=== PATIENT | male | born 1960 | race Hispanic/Latino ===

== ENCOUNTER 2018-04-05 04:24 | Inpatient (IN) | payer OTHER ==
[2018-04-05] MEDS: GASTROGRAFIN SOLUTION 30ML PO ×2 (05:27→06:05)
[2018-04-05 05:39] LABS: HEMATOCRIT 35.6 % (42.0-52.0); HEMOGLOBIN 12.5 g/dl (13.5-17.5); MEAN CORPUSCULAR HEMOGLOBIN 29.5 pg (27.0-33.0); MEAN CORPUSCULAR HGB CONC 35.1 g/dl (32.0-36.5); RED BLOOD COUNT 4.24 10^6/uL (4.30-6.10); RED CELL DISTRIBUTION WIDTH 12.3 % (11.5-14.5); WHITE BLOOD COUNT 15.5 10^3/uL (4.0-10.0)
[2018-04-05 06:02] LABS: ALBUMIN 2.7 GM/DL (3.2-5.2); ALBUMIN/GLOBULIN RATIO 0.79 (1.00-1.93); ALKALINE PHOSPHATASE 122 U/L (45-117); ALT/SGPT 87 U/L (12-78); ANION GAP 18 MEQ/L (8-16); AST/SGOT 79 U/L (7-37); BILIRUBIN,DIRECT 4.1 MG/DL (0.0-0.2); BILIRUBIN,TOTAL 4.6 MG/DL (0.2-1.0); BLOOD UREA NITROGEN 56 MG/DL (7-18); CALCIUM LEVEL 8.5 MG/DL (8.5-10.1); CARBON DIOXIDE LEVEL 19 MEQ/L (21-32); CHLORIDE LEVEL 97 MEQ/L (98-107); CK-MB VALUE MASS < 1.0 NG/ML (<3.6); CPK CREATINE PHOSPHOKINASE 92 U/L (39-308); CREATININE FOR GFR 5.29 MG/DL (0.70-1.30); GLUCOSE, FASTING 399 MG/DL (70-100); LIPASE 106 U/L (73-393); MB/CK RELATIVE INDEX 1.08 (< OR =4); POTASSIUM SERUM 4.2 MEQ/L (3.5-5.1); SODIUM LEVEL 134 MEQ/L (136-145); TOTAL PROTEIN 6.1 GM/DL (6.4-8.2); TROPONIN I < 0.02 NG/ML (< 0.10)
[2018-04-05 06:12] LABS: AMORPHOUS SEDIMENT LARGE (NEGATIVE); APPEARANCE, URINE CLOUDY (CLEAR); BACTERIA, URINE AUTO NEGATIVE (NEGATIVE); BILIRUBIN, URINE AUTO 1+ (NEGATIVE); BLOOD, URINE BLOOD 1+ (NEGATIVE); COLOR, URINE AMBER (YELLOW); GLUCOSE, URINE (UA) AUTO 3+ mg/dL (NEGATIVE); KETONE, URINE AUTO NEGATIVE (NEGATIVE); LEUKOCYTE ESTERASE, URINE AUTO TRACE (NEGATIVE); NITRITE, URINE AUTO NEGATIVE (NEGATIVE); PROTEIN, URINE AUTO 2+ mg/dL (NEGATIVE); RBC, URINE AUTO 1 /HPF (0-3); RENAL EPITHELIAL CELLS 1 /HPF; SPECIFIC GRAVITY URINE AUTO 1.018 (1.002-1.035); SQUAMOUS EPITHELIAL CELL UR AU 3 /HPF (0-6); TRANSITIONAL EPITHELIAL AUTO 4 /HPF; WBC, URINE AUTO 13 /HPF (0-3)
[2018-04-05 06:35] LABS: PLATELET COUNT, AUTOMATED 71 10^3/uL (150-450); POSITIVE MORPH POS FLAG
[2018-04-05 06:38] LABS: ADD MANUAL DIFFER YES; DIFF SLIDE NUMBER 91
[2018-04-05 06:42] LABS: ANISOCYTOSIS 1+; ATYPICAL LYMPH 2 % (0-5); BANDS 5 % (< 11); LYMPHOCYTES 8 % (16-52); MONOCYTES 3 % (0-8); NEUTROPHILS 82 % (35-75); PLATELET ESTIMATE DECREASED (NORMAL); POLYCHROMASIA 1+
[2018-04-05 06:43] LABS: TOXIC VACUOLATION 1+
[2018-04-05] MEDS: HumuLIN R (REGULAR) INSULIN (NovoLIN R) **100U/ML** PER UNIT IV (07:04)
[2018-04-05 08:29] LABS: BEDSIDE GLUCOSE 341 MG/DL (70-105)
[2018-04-05] MEDS: HumuLIN R (REGULAR) INSULIN (NovoLIN R) **100U/ML** PER UNIT SC (09:32)
[2018-04-05] MEDS: PIPERACILLIN/TAZOBACTAM SOD 2.25 GM in D5W MINI-BAG PLUS 50 ML IV ×2 (09:32→17:18)
[2018-04-05 10:09] LABS: ABG BASE EXCESS -7.1 (-2.0-2.0); ABG HCO3 16.6 MEQ/L (22.0-26.0); ABG O2 SATURATION 91.6 % (95.0-99.0); ABG PARTIAL PRESSURE CO2 28.7 mmHg (35.0-45.0); ABG PARTIAL PRESSURE O2 61.9 mmHg (75.0-100.0); ABG STANDARD HCO3 18.6 MEQ/L (22.0-26.0); ABG TOTAL CO2 17.5 MEQ/L (22.0-29.0); ABG pH (ARTERIAL) 7.381 UNITS (7.350-7.450)
[2018-04-05 10:50] LABS: LACTIC ACID SEPSIS PROTOCOL 3.2 MMOL/L (0.4-2.0)
[2018-04-05 10:55] LABS: BEDSIDE GLUCOSE 370 MG/DL (70-105)
[2018-04-05] MEDS ORDERED: INSULIN HUMAN REGULAR 100 UNITS in NS 99 ML IV (11:00)
[2018-04-05] MEDS ORDERED: PERCOCET 5MG/325MG TAB PO (11:30)
[2018-04-05 11:44] LABS: BEDSIDE GLUCOSE 368 MG/DL (70-105)
[2018-04-05] MEDS: NS 1,000 ML IV ×3 (11:44→23:59)
[2018-04-05 11:50] LABS: ESTIMATED AVERAGE GLUCOSE 232 MG/DL (60-110); HEMOGLOBIN A1c 9.7 %
[2018-04-05] MEDS ORDERED: PANTOPRAZOLE 40MG INJ (PROTONIX) (C9113) IV (12:00)
[2018-04-05] MEDS ORDERED: PIPERACILLIN/TAZOBACTAM SOD 2.25 GM in D5W MINI-BAG PLUS 50 ML IV (12:00)
[2018-04-05 12:05] LABS: ACETONE/KETONE 6.67 MG/DL (<2.81); ANION GAP 16 MEQ/L (8-16); BLOOD UREA NITROGEN 66 MG/DL (7-18); CALCIUM LEVEL 8.6 MG/DL (8.5-10.1); CARBON DIOXIDE LEVEL 22 MEQ/L (21-32); CHLORIDE LEVEL 96 MEQ/L (98-107); CREATININE FOR GFR 5.94 MG/DL (0.70-1.30); GLOMERULAR FILTRATION RATE 10.5 (>56); GLUCOSE, FASTING 393 MG/DL (70-100); POTASSIUM SERUM 4.4 MEQ/L (3.5-5.1); SODIUM LEVEL 134 MEQ/L (136-145); TROPONIN I < 0.02 NG/ML (< 0.10)
[2018-04-05 12:27] LABS: BEDSIDE GLUCOSE 378 MG/DL (70-105)
[2018-04-05] MEDS: INSULIN HUMAN REGULAR 100 UNITS in NS 99 ML IV (12:27)
[2018-04-05 12:39] LABS: FIBRINOGEN 860 MG/DL (221-452)
[2018-04-05 12:39] LABS: INR 1.33; PROTHROMBIN TIME 16.7 SECONDS (12.1-14.4)
[2018-04-05] MEDS: PANTOPRAZOLE 40MG INJ (PROTONIX) (C9113) IV (12:51)
[2018-04-05] MEDS: METOPROLOL TART 50 MG TAB PO ×2 (12:52→21:00)
[2018-04-05] MEDS: MORPHINE 4 MG/ML 1ML VIAL/SYRINGE (J2270) IV ×2 (12:59→21:13)
[2018-04-05 13:05] LABS: D-DIMER QUANT > 4000.0 ng/ml (<500)
[2018-04-05 13:10] LABS: BEDSIDE GLUCOSE 369 MG/DL (70-105)
[2018-04-05 14:18] LABS: BEDSIDE GLUCOSE 354 MG/DL (70-105)
[2018-04-05 15:27] LABS: BEDSIDE GLUCOSE 321 MG/DL (70-105)
[2018-04-05] MEDS: INSULIN IV RATE CHANGE DOCUMENTATION ML/HR XX (15:30)
[2018-04-05 15:35] LABS: AMPHETAMINES LEVEL URINE NEGATIVE (NEGATIVE); BARBITURATES URINE NEGATIVE (NEGATIVE); BENZODIAZEPINES URINE NEGATIVE (NEGATIVE); CANNABINOIDS URINE NEGATIVE (NEGATIVE); COCAINE METABOLITE URINE NEGATIVE (NEGATIVE); METHADONE URINE NEGATIVE (NEGATIVE); OPIATES URINE POSITIVE (NEGATIVE); PHENCYCLIDINE URINE NEGATIVE (NEGATIVE)
[2018-04-05 15:41] LABS: SODIUM,RANDOM URINE 54 MEQ/L
[2018-04-05 15:50] LABS: ANION GAP 12 MEQ/L (8-16); BLOOD UREA NITROGEN 67 MG/DL (7-18); CALCIUM LEVEL 8.7 MG/DL (8.5-10.1); CARBON DIOXIDE LEVEL 20 MEQ/L (21-32); CHLORIDE LEVEL 100 MEQ/L (98-107); GLOMERULAR FILTRATION RATE 10.2 (>56); GLUCOSE, FASTING 330 MG/DL (70-100); POTASSIUM SERUM 4.1 MEQ/L (3.5-5.1); SODIUM LEVEL 132 MEQ/L (136-145)
[2018-04-05] MEDS ORDERED: GLUCAGON FOR INJ 1 MG VIAL (J1610) SC (16:15)
[2018-04-05] MEDS ORDERED: GLUCOSE 4 GM CHEW TABLET PO (16:15)
[2018-04-05] MEDS ORDERED: DEXTROSE 50% 50 ML SYRINGE IV (16:15)
[2018-04-05] MEDS: LEVEMIR (INSULIN DETEMIR) 1 UNITS/0.01ML SC (16:32)
[2018-04-05 17:11] LABS: BEDSIDE GLUCOSE 297 MG/DL (70-105)
[2018-04-05] MEDS ORDERED: LORazepam 2 MG/ML VIAL (J2060) IV (17:11)
[2018-04-05] MEDS: HumaLOG INSULIN (NovoLOG) PER UNIT SC ×2 (17:18→21:04)
[2018-04-05 19:48] LABS: BEDSIDE GLUCOSE 275 MG/DL (70-105)
[2018-04-06] MEDS: PANTOPRAZOLE 40MG INJ (PROTONIX) (C9113) IV ×2 (01:13→12:30)
[2018-04-06] MEDS: PIPERACILLIN/TAZOBACTAM SOD 2.25 GM in D5W MINI-BAG PLUS 50 ML IV ×3 (01:13→17:15)
[2018-04-06] MEDS: MORPHINE 4 MG/ML 1ML VIAL/SYRINGE (J2270) IV (04:21)
[2018-04-06 06:06] LABS: ALBUMIN 2.2 GM/DL (3.2-5.2); ALBUMIN/GLOBULIN RATIO 0.56 (1.00-1.93); ALKALINE PHOSPHATASE 90 U/L (45-117); ALT/SGPT 60 U/L (12-78); ANION GAP 15 MEQ/L (8-16); AST/SGOT 53 U/L (7-37); BILIRUBIN,TOTAL 5.4 MG/DL (0.2-1.0); BLOOD UREA NITROGEN 77 MG/DL (7-18); CALCIUM LEVEL 8.6 MG/DL (8.5-10.1); CARBON DIOXIDE LEVEL 20 MEQ/L (21-32); CHLORIDE LEVEL 101 MEQ/L (98-107); CREATININE FOR GFR 7.45 MG/DL (0.70-1.30); GLOMERULAR FILTRATION RATE 8.1 (>56); GLUCOSE, FASTING 213 MG/DL (70-100); POTASSIUM SERUM 4.9 MEQ/L (3.5-5.1); SODIUM LEVEL 136 MEQ/L (136-145); TOTAL PROTEIN 6.1 GM/DL (6.4-8.2)
[2018-04-06 06:52] LABS: HEMATOCRIT 33.1 % (42.0-52.0); HEMOGLOBIN 11.7 g/dl (13.5-17.5); MEAN CORPUSCULAR HEMOGLOBIN 29.6 pg (27.0-33.0); MEAN CORPUSCULAR HGB CONC 35.3 g/dl (32.0-36.5); MEAN CORPUSCULAR VOLUME 83.8 fl (80.0-96.0); RED BLOOD COUNT 3.95 10^6/uL (4.30-6.10); RED CELL DISTRIBUTION WIDTH 13.1 % (11.5-14.5)
[2018-04-06 07:22] LABS: PLATELET COUNT, AUTOMATED 48 10^3/uL (150-450)
[2018-04-06 07:23] LABS: IMMATURE PLATELET FRACTION % 22.2 % (0.0-10.9)
[2018-04-06 07:29] LABS: LACTIC ACID SEPSIS PROTOCOL 4.1 MMOL/L (0.4-2.0)
[2018-04-06] MEDS: METOPROLOL TART 50 MG TAB PO ×2 (09:02→20:27)
[2018-04-06] MEDS: HumaLOG INSULIN (NovoLOG) PER UNIT SC ×4 (09:03→20:27)
[2018-04-06] MEDS: NS 1,000 ML IV ×2 (11:04→20:25)
[2018-04-06 12:19] LABS: BEDSIDE GLUCOSE 204 MG/DL (70-105)
[2018-04-06] MEDS: FUROSEMIDE 100 MG/10 ML VIAL (J1940) IV (12:30)
[2018-04-06 14:30] LABS: ANION GAP 18 MEQ/L (8-16); BLOOD UREA NITROGEN 87 MG/DL (7-18); CALCIUM LEVEL 8.4 MG/DL (8.5-10.1); CARBON DIOXIDE LEVEL 17 MEQ/L (21-32); CHLORIDE LEVEL 101 MEQ/L (98-107); CREATININE FOR GFR 7.92 MG/DL (0.70-1.30); GLOMERULAR FILTRATION RATE 7.6 (>56); GLUCOSE, FASTING 225 MG/DL (70-100); POTASSIUM SERUM 4.8 MEQ/L (3.5-5.1); SODIUM LEVEL 136 MEQ/L (136-145)
[2018-04-06 17:07] LABS: BEDSIDE GLUCOSE 217 MG/DL (70-105)
[2018-04-06 20:27] LABS: BEDSIDE GLUCOSE 197 MG/DL (70-105)
[2018-04-06] MEDS: PERCOCET 5MG/325MG TAB PO (21:19)
[2018-04-07] MEDS: NS 1,000 ML IV (00:15)
[2018-04-07] MEDS: PANTOPRAZOLE 40MG INJ (PROTONIX) (C9113) IV ×2 (01:00→16:51)
[2018-04-07] MEDS: PIPERACILLIN/TAZOBACTAM SOD 2.25 GM in D5W MINI-BAG PLUS 50 ML IV ×3 (01:08→16:52)
[2018-04-07] MEDS: ALBUTEROL 90 MCG/ACT 8GM HFA INHALER INH ×2 (01:42→23:51)
[2018-04-07 04:54] LABS: ALBUMIN 1.9 GM/DL (3.2-5.2); ALBUMIN/GLOBULIN RATIO 0.48 (1.00-1.93); ALKALINE PHOSPHATASE 82 U/L (45-117); ALT/SGPT 49 U/L (12-78); ANION GAP 18 MEQ/L (8-16); AST/SGOT 57 U/L (7-37); BILIRUBIN,TOTAL 8.7 MG/DL (0.2-1.0); BLOOD UREA NITROGEN 107 MG/DL (7-18); CALCIUM LEVEL 8.3 MG/DL (8.5-10.1); CARBON DIOXIDE LEVEL 17 MEQ/L (21-32); CHLORIDE LEVEL 101 MEQ/L (98-107); GLOMERULAR FILTRATION RATE 6.6 (>56); GLUCOSE, FASTING 251 MG/DL (70-100); SODIUM LEVEL 136 MEQ/L (136-145); TOTAL PROTEIN 5.9 GM/DL (6.4-8.2)
[2018-04-07 04:56] LABS: CREATININE FOR GFR 8.88 MG/DL (0.70-1.30); POTASSIUM SERUM 5.5 MEQ/L (3.5-5.1)
[2018-04-07 06:48] LABS: HEMATOCRIT 31.7 % (42.0-52.0); MEAN CORPUSCULAR HEMOGLOBIN 29.4 pg (27.0-33.0); MEAN CORPUSCULAR HGB CONC 34.7 g/dl (32.0-36.5); MEAN CORPUSCULAR VOLUME 84.8 fl (80.0-96.0); RED BLOOD COUNT 3.74 10^6/uL (4.30-6.10); RED CELL DISTRIBUTION WIDTH 13.9 % (11.5-14.5); WHITE BLOOD COUNT 23.1 10^3/uL (4.0-10.0)
[2018-04-07 07:01] LABS: PLATELET COUNT, AUTOMATED 46 10^3/uL (150-450)
[2018-04-07 07:28] LABS: LACTIC ACID SEPSIS PROTOCOL 3.1 MMOL/L (0.4-2.0)
[2018-04-07] MEDS: HumaLOG INSULIN (NovoLOG) PER UNIT SC ×4 (07:57→20:53)
[2018-04-07] MEDS: METOPROLOL TART 50 MG TAB PO ×2 (08:26→20:49)
[2018-04-07] MEDS ORDERED: HEPARIN 1,000 UNITS/ML 10ML VIAL (FOR RADIOLOGY& DIALYSIS ONLY) As Ordered (10:44)
[2018-04-07 10:54] LABS: HIV 1&2 SCREEN CENTAUR NEGATIVE (NEGATIVE)
[2018-04-07 11:59] LABS: HEPATITIS B SURFACE ANTIGEN NEGATIVE (NEGATIVE)
[2018-04-07 12:23] LABS: HEPATITIS C VIRUS ABY INDEX 0.1 INDEX (<0.8)
[2018-04-07 12:24] LABS: HEPATITIS B CORE ANTIBODY IGM NEGATIVE (NEGATIVE)
[2018-04-07 12:26] LABS: HEPATITIS A ANTIBODY IGM NEGATIVE (NEGATIVE)
[2018-04-07] MEDS: HEPARIN 1,000 UNITS/ML 10ML VIAL (FOR RADIOLOGY& DIALYSIS ONLY) IV (15:45)
[2018-04-07 17:07] LABS: BEDSIDE GLUCOSE 170 MG/DL (70-105)
[2018-04-07 20:15] LABS: BEDSIDE GLUCOSE 214 MG/DL (70-105)
[2018-04-07 20:28] LABS: ABG BASE EXCESS -7.4 (-2.0-2.0); ABG HCO3 16.3 MEQ/L (22.0-26.0); ABG O2 SATURATION 93.2 % (95.0-99.0); ABG PARTIAL PRESSURE CO2 27.8 mmHg (35.0-45.0); ABG PARTIAL PRESSURE O2 74.2 mmHg (75.0-100.0); ABG STANDARD HCO3 18.4 MEQ/L (22.0-26.0); ABG TOTAL CO2 17.2 MEQ/L (22.0-29.0); ABG pH (ARTERIAL) 7.387 UNITS (7.350-7.450)
[2018-04-07 20:33] LABS: HEMATOCRIT 29.3 % (42.0-52.0); HEMOGLOBIN 10.6 g/dl (13.5-17.5); MEAN CORPUSCULAR HEMOGLOBIN 29.4 pg (27.0-33.0); MEAN CORPUSCULAR HGB CONC 36.2 g/dl (32.0-36.5); MEAN CORPUSCULAR VOLUME 81.2 fl (80.0-96.0); RED BLOOD COUNT 3.61 10^6/uL (4.30-6.10); RED CELL DISTRIBUTION WIDTH 13.4 % (11.5-14.5); WHITE BLOOD COUNT 25.8 10^3/uL (4.0-10.0)
[2018-04-07 20:41] LABS: PLATELET COUNT, AUTOMATED 41 10^3/uL (150-450)
[2018-04-07 20:48] LABS: AMMONIA < 10 uMOL/L (<32)
[2018-04-07 20:52] LABS: ALBUMIN 1.9 GM/DL (3.2-5.2); ALBUMIN/GLOBULIN RATIO 0.58 (1.00-1.93); ALKALINE PHOSPHATASE 103 U/L (45-117); ALT/SGPT 48 U/L (12-78); AMYLASE 19 U/L (25-115); ANION GAP 19 MEQ/L (8-16); AST/SGOT 70 U/L (7-37); BILIRUBIN,TOTAL 10.6 MG/DL (0.2-1.0); BLOOD UREA NITROGEN 70 MG/DL (7-18); CALCIUM LEVEL 7.8 MG/DL (8.5-10.1); CARBON DIOXIDE LEVEL 20 MEQ/L (21-32); CHLORIDE LEVEL 99 MEQ/L (98-107); GLOMERULAR FILTRATION RATE 11.5 (>56); GLUCOSE, FASTING 208 MG/DL (70-100); LIPASE 68 U/L (73-393); POTASSIUM SERUM 4.7 MEQ/L (3.5-5.1); SODIUM LEVEL 138 MEQ/L (136-145); TOTAL PROTEIN 5.2 GM/DL (6.4-8.2)
[2018-04-08] MEDS: NITROGLYCERIN 0.4 MG SUBL TABLET SL (00:42)
[2018-04-08] MEDS: PANTOPRAZOLE 40MG INJ (PROTONIX) (C9113) IV ×2 (00:43→17:29)
[2018-04-08] MEDS: PIPERACILLIN/TAZOBACTAM SOD 2.25 GM in D5W MINI-BAG PLUS 50 ML IV ×3 (00:44→17:29)
[2018-04-08 01:14] LABS: CK-MB VALUE MASS < 1.0 NG/ML (<3.6); CPK CREATINE PHOSPHOKINASE 40 U/L (39-308); TROPONIN I 0.03 NG/ML (< 0.10)
[2018-04-08 02:25] LABS: ABG BASE EXCESS -10.4 (-2.0-2.0); ABG HCO3 14.5 MEQ/L (22.0-26.0); ABG O2 SATURATION 95.7 % (95.0-99.0); ABG PARTIAL PRESSURE CO2 29.2 mmHg (35.0-45.0); ABG PARTIAL PRESSURE O2 93.1 mmHg (75.0-100.0); ABG STANDARD HCO3 16.1 MEQ/L (22.0-26.0); ABG TOTAL CO2 15.4 MEQ/L (22.0-29.0); ABG pH (ARTERIAL) 7.315 UNITS (7.350-7.450)
[2018-04-08] MEDS ORDERED: ALBUTEROL SULFATE 2.5 MG/0.5 ML INH NEB SOLN NEB (02:30)
[2018-04-08] MEDS: IPRATROPIUM 0.5MG/ALBUTEROL 2.5MG INH SOL UD 3ML (DUONEB)(J7620) NEB (02:38)
[2018-04-08 05:28] LABS: ALBUMIN 1.8 GM/DL (3.2-5.2); ALBUMIN/GLOBULIN RATIO 0.46 (1.00-1.93); ALKALINE PHOSPHATASE 118 U/L (45-117); ALT/SGPT 42 U/L (12-78); ANION GAP 19 MEQ/L (8-16); AST/SGOT 53 U/L (7-37); BLOOD UREA NITROGEN 85 MG/DL (7-18); CALCIUM LEVEL 7.9 MG/DL (8.5-10.1); CARBON DIOXIDE LEVEL 19 MEQ/L (21-32); CHLORIDE LEVEL 98 MEQ/L (98-107); CREATININE FOR GFR 6.52 MG/DL (0.70-1.30); GLOMERULAR FILTRATION RATE 9.5 (>56); GLUCOSE, FASTING 295 MG/DL (70-100); POTASSIUM SERUM 4.6 MEQ/L (3.5-5.1); SODIUM LEVEL 136 MEQ/L (136-145); TOTAL PROTEIN 5.7 GM/DL (6.4-8.2)
[2018-04-08] MEDS: HumaLOG INSULIN (NovoLOG) PER UNIT SC ×4 (07:45→20:49)
[2018-04-08] MEDS ORDERED: ISOVUE-370 76% 100ML VIAL (Q9967) As Ordered (08:12)
[2018-04-08] MEDS: METOPROLOL TART 50 MG TAB PO ×2 (09:00→20:49)
[2018-04-08] MEDS: HEPARIN 1,000 UNITS/ML 10ML VIAL (FOR RADIOLOGY& DIALYSIS ONLY) XX (12:15)
[2018-04-08 12:22] LABS: LDH LACTATE DEHYDROGENASE 300 U/L (87-241)
[2018-04-08 12:56] LABS: HEMATOCRIT 30.3 % (42.0-52.0); HEMOGLOBIN 11.1 g/dl (13.5-17.5); MEAN CORPUSCULAR HEMOGLOBIN 29.4 pg (27.0-33.0); MEAN CORPUSCULAR HGB CONC 36.6 g/dl (32.0-36.5); MEAN CORPUSCULAR VOLUME 80.2 fl (80.0-96.0); RED BLOOD COUNT 3.78 10^6/uL (4.30-6.10); RED CELL DISTRIBUTION WIDTH 13.8 % (11.5-14.5); WHITE BLOOD COUNT 24.3 10^3/uL (4.0-10.0)
[2018-04-08 12:58] LABS: PLATELET COUNT, AUTOMATED 35 10^3/uL (150-450)
[2018-04-08 12:59] LABS: IMMATURE PLATELET FRACTION % 17.9 % (0.0-10.9)
[2018-04-08 17:05] LABS: BEDSIDE GLUCOSE 219 MG/DL (70-105)
[2018-04-08 18:07] LABS: GAMMA GLUTAMYLTRANSPEPTIDASE 60 U/L (15-85)
[2018-04-08] MEDS: VANCOMYCIN HCL 1,000 MG, VIAL MATE ADAPTER 1 EACH in D5W 250 ML IV (18:31)
[2018-04-08 20:25] LABS: BILIRUBIN,DIRECT 9.3 MG/DL (0.0-0.2)
[2018-04-08 20:50] LABS: BEDSIDE GLUCOSE 267 MG/DL (70-105)
[2018-04-08] MEDS: AZITHROMYCIN INJ 500 MG, VIAL MATE ADAPTER 1 EACH in D5W 250 ML IV (23:15)
[2018-04-09] MEDS: PANTOPRAZOLE 40MG INJ (PROTONIX) (C9113) IV ×2 (00:16→17:02)
[2018-04-09] MEDS: AZITHROMYCIN INJ 500 MG, VIAL MATE ADAPTER 1 EACH in D5W 250 ML IV (00:16)
[2018-04-09 00:34] LABS: AMMONIA < 10 uMOL/L (<32)
[2018-04-09 00:50] LABS: ANION GAP 16 MEQ/L (8-16); BLOOD UREA NITROGEN 68 MG/DL (7-18); CALCIUM LEVEL 7.6 MG/DL (8.5-10.1); CARBON DIOXIDE LEVEL 24 MEQ/L (21-32); CHLORIDE LEVEL 96 MEQ/L (98-107); GLOMERULAR FILTRATION RATE 12.3 (>56); GLUCOSE, FASTING 263 MG/DL (70-100); POTASSIUM SERUM 4.3 MEQ/L (3.5-5.1); SODIUM LEVEL 136 MEQ/L (136-145)
[2018-04-09] MEDS: PERCOCET 5MG/325MG TAB PO ×2 (00:51→20:36)
[2018-04-09] MEDS: PIPERACILLIN/TAZOBACTAM SOD 2.25 GM in D5W MINI-BAG PLUS 50 ML IV ×3 (00:51→17:42)
[2018-04-09 01:04] LABS: HEMATOCRIT 28.3 % (42.0-52.0); HEMOGLOBIN 10.4 g/dl (13.5-17.5); MEAN CORPUSCULAR HEMOGLOBIN 29.5 pg (27.0-33.0); MEAN CORPUSCULAR HGB CONC 36.7 g/dl (32.0-36.5); MEAN CORPUSCULAR VOLUME 80.2 fl (80.0-96.0); RED BLOOD COUNT 3.53 10^6/uL (4.30-6.10); RED CELL DISTRIBUTION WIDTH 13.8 % (11.5-14.5); WHITE BLOOD COUNT 27.5 10^3/uL (4.0-10.0)
[2018-04-09 01:08] LABS: PLATELET COUNT, AUTOMATED 33 10^3/uL (150-450)
[2018-04-09 05:11] LABS: HEMATOCRIT 26.6 % (42.0-52.0); HEMOGLOBIN 9.8 g/dl (13.5-17.5); MEAN CORPUSCULAR HEMOGLOBIN 28.8 pg (27.0-33.0); MEAN CORPUSCULAR HGB CONC 36.8 g/dl (32.0-36.5); MEAN CORPUSCULAR VOLUME 78.2 fl (80.0-96.0); RED CELL DISTRIBUTION WIDTH 13.5 % (11.5-14.5)
[2018-04-09 05:17] LABS: PLATELET COUNT, AUTOMATED 31 10^3/uL (150-450)
[2018-04-09 05:32] LABS: ALBUMIN 1.5 GM/DL (3.2-5.2); ALBUMIN/GLOBULIN RATIO 0.39 (1.00-1.93); ALKALINE PHOSPHATASE 162 U/L (45-117); ALT/SGPT 39 U/L (12-78); ANION GAP 15 MEQ/L (8-16); AST/SGOT 54 U/L (7-37); BILIRUBIN,TOTAL 12.7 MG/DL (0.2-1.0); BLOOD UREA NITROGEN 76 MG/DL (7-18); CALCIUM LEVEL 7.8 MG/DL (8.5-10.1); CARBON DIOXIDE LEVEL 23 MEQ/L (21-32); CHLORIDE LEVEL 98 MEQ/L (98-107); CREATININE FOR GFR 5.77 MG/DL (0.70-1.30); GLOMERULAR FILTRATION RATE 10.9 (>56); GLUCOSE, FASTING 296 MG/DL (70-100); POTASSIUM SERUM 4.2 MEQ/L (3.5-5.1); SODIUM LEVEL 136 MEQ/L (136-145); TOTAL PROTEIN 5.3 GM/DL (6.4-8.2)
[2018-04-09 06:02] LABS: ERYTHROCYTE SEDIMENTATION RATE 68 mm/hr (0-20)
[2018-04-09] MEDS: HumaLOG INSULIN (NovoLOG) PER UNIT SC ×4 (07:30→23:36)
[2018-04-09] MEDS: ALPRAZolam 0.5 MG TAB PO (10:05)
[2018-04-09] MEDS: METOPROLOL TART 50 MG TAB PO ×2 (11:12→20:36)
[2018-04-09] MEDS ORDERED: DARBEPOETIN 100 MCG/0.5 ML *DIALYSIS* SYRINGE (J0882) IV (13:00)
[2018-04-09 14:06] LABS: PROTHROMBIN TIME 16.4 SECONDS (12.1-14.4)
[2018-04-09] MEDS: HEPARIN 1,000 UNITS/ML 10ML VIAL (FOR RADIOLOGY& DIALYSIS ONLY) XX (14:52)
[2018-04-09] MEDS: NS 1,000 ML IV (17:39)
[2018-04-09 18:18] LABS: BEDSIDE GLUCOSE 195 MG/DL (70-105)
[2018-04-09 18:44] LABS: IMMEDIATE SPIN CROSSMATCH 1
[2018-04-09 20:36] LABS: BEDSIDE GLUCOSE 216 MG/DL (70-105)
[2018-04-09] MEDS: MORPHINE 4 MG/ML 1ML VIAL/SYRINGE (J2270) IV (23:36)
[2018-04-09 23:38] LABS: BEDSIDE GLUCOSE 235 MG/DL (70-105)
[2018-04-10] MEDS: PANTOPRAZOLE 40MG INJ (PROTONIX) (C9113) IV ×2 (01:00→13:05)
[2018-04-10] MEDS: PIPERACILLIN/TAZOBACTAM SOD 2.25 GM in D5W MINI-BAG PLUS 50 ML IV ×3 (01:00→17:00)
[2018-04-10] MEDS: PERCOCET 5MG/325MG TAB PO (02:03)
[2018-04-10 04:50] LABS: HEMATOCRIT 26.2 % (42.0-52.0); HEMOGLOBIN 9.4 g/dl (13.5-17.5); MEAN CORPUSCULAR HGB CONC 35.9 g/dl (32.0-36.5); MEAN CORPUSCULAR VOLUME 80.9 fl (80.0-96.0); RED BLOOD COUNT 3.24 10^6/uL (4.30-6.10); RED CELL DISTRIBUTION WIDTH 13.5 % (11.5-14.5); SLIDE REVIEW Report; SOURCE PERIPHERAL SMEAR; WHITE BLOOD COUNT 25.6 10^3/uL (4.0-10.0)
[2018-04-10 04:52] LABS: IMMATURE PLATELET FRACTION % 12.3 % (0.0-10.9); PLATELET COUNT, AUTOMATED 85 10^3/uL (150-450)
[2018-04-10 05:00] LABS: INR 1.34; PARTIAL THROMBOPLASTIN TIME 27.9 SECONDS (25.4-37.6); PROTHROMBIN TIME 16.8 SECONDS (12.1-14.4)
[2018-04-10 05:04] LABS: URIC ACID 6.7 MG/DL (3.5-7.2)
[2018-04-10 05:08] LABS: ALBUMIN 1.5 GM/DL (3.2-5.2); ALBUMIN/GLOBULIN RATIO 0.47 (1.00-1.93); ALKALINE PHOSPHATASE 195 U/L (45-117); ALT/SGPT 35 U/L (12-78); AST/SGOT 42 U/L (7-37); BILIRUBIN,DIRECT 12.1 MG/DL (0.0-0.2); BILIRUBIN,TOTAL 13.2 MG/DL (0.2-1.0); TOTAL PROTEIN 4.7 GM/DL (6.4-8.2)
[2018-04-10 05:11] LABS: ALBUMIN 1.5 GM/DL (3.2-5.2); ALBUMIN/GLOBULIN RATIO 0.47 (1.00-1.93); ALKALINE PHOSPHATASE 212 U/L (45-117); ALT/SGPT 36 U/L (12-78); ANION GAP 15 MEQ/L (8-16); AST/SGOT 41 U/L (7-37); BILIRUBIN,TOTAL 13.2 MG/DL (0.2-1.0); BLOOD UREA NITROGEN 58 MG/DL (7-18); CALCIUM LEVEL 7.9 MG/DL (8.5-10.1); CARBON DIOXIDE LEVEL 24 MEQ/L (21-32); CHLORIDE LEVEL 99 MEQ/L (98-107); CREATININE FOR GFR 4.94 MG/DL (0.70-1.30); GLUCOSE, FASTING 231 MG/DL (70-100); POTASSIUM SERUM 4.2 MEQ/L (3.5-5.1); SODIUM LEVEL 138 MEQ/L (136-145); TOTAL PROTEIN 4.7 GM/DL (6.4-8.2); VANCOMYCIN RANDOM 7.2 UG/ML
[2018-04-10 05:13] LABS: ERYTHROCYTE SEDIMENTATION RATE 109 mm/hr (0-20)
[2018-04-10] MEDS: HumaLOG INSULIN (NovoLOG) PER UNIT SC ×3 (05:26→18:00)
[2018-04-10] MEDS: VANCOMYCIN HCL 1,000 MG, VIAL MATE ADAPTER 1 EACH in D5W 250 ML IV (05:27)
[2018-04-10 05:38] LABS: BEDSIDE GLUCOSE 212 MG/DL (70-105)
[2018-04-10] MEDS: METOPROLOL TART 50 MG TAB PO (07:52)
[2018-04-10 12:33] LABS: BEDSIDE GLUCOSE 241 MG/DL (70-105)
[2018-04-10] MEDS: predniSONE 20 MG TAB PO (14:44)
[2018-04-10 17:57] LABS: BEDSIDE GLUCOSE 250 MG/DL (70-105)
[2018-04-11 08:06] LABS: HAPTOGLOBIN 274 mg/dL (34-200)
[2018-04-11 14:29] LABS: BODY FLUID CULTURE Not Indicated (.); LEGIONELLA ANTIGEN URINE Negative (Negative); ORGANISM ID Not indicated. (.); SPECIMEN SOURCE Urine (.); URINE STREP PNEUMONIAE ANTIGEN Negative (Negative)
[2018-04-12 00:08] LABS: QUANTIFERON GOLD TB Negative (Negative); TB Test (QFT) Antigen Minus Ni <0.01 IU/mL (.); TB Test (QFT) Nil 0.04 IU/mL (.)
[2018-04-16 00:07] LABS: ADAMTS13 Activity 98.9 % (>66.8)
[2018-04-17 00:06] LABS: HEPATITIS E IgM ANTIBODY Negative (Negative)
== END 2018-04-10 21:30 | DRG 0 ==
LOC: M ED 04:24 → M ED INP 10:39 → M ICU 11:54
PROC: 02HV33Z Insertion of Infusion Device into Superior Vena Cava, Percutaneous Approach (ICD-10-PCS; principal; 2018-04-07)
PROC: 0JH63XZ Insertion of Tunneled Vascular Access Device into Chest Subcutaneous Tissue and Fascia, Percutaneous Approach (ICD-10-PCS; 2018-04-07)
PROC: 5A1D70Z Performance of Urinary Filtration, Intermittent, Less than 6 Hours Per Day (ICD-10-PCS; 2018-04-07)
DX: D59.3 Hemolytic-uremic syndrome (principal); G93.41 Metabolic encephalopathy; N17.9 Acute kidney failure, unspecified; J18.9 Pneumonia, unspecified organism; E11.10 Type 2 diabetes mellitus with ketoacidosis without coma; D69.6 Thrombocytopenia, unspecified; E87.2 Acidosis; E87.5 Hyperkalemia; D72.829 Elevated white blood cell count, unspecified; J45.909 Unspecified asthma, uncomplicated; Z79.899 Other long term (current) drug therapy; E78.5 Hyperlipidemia, unspecified; M19.90 Unspecified osteoarthritis, unspecified site; I10 Essential (primary) hypertension; K25.9 Gastric ulcer, unspecified as acute or chronic, without hemorrhage or perforation; F17.200 Nicotine dependence, unspecified, uncomplicated